=== PATIENT | female | born 1970 | race Caucasian/White ===

== ENCOUNTER → 2017-01-17 | Day surgery (SDC) | payer OTHER ==
[~2017-01-17] MED LIST: ACETAMINOPHEN 1000 MG/100 ML 100 ML IV ONE; ACETAMINOPHEN/HYDROcodone 325 MG/5 MG TAB ONE; GLYCOPYRROLATE 0.2 MG/ML VIAL IM ONE; IBUP800T23 PO; IOHEXOL 180 MG/ML 20 ML VIAL (for RAD DIAG) OTHER ONE; KETOROLAC TROMETHAMINE 30 MG/ML (IVP) VIAL IV PUSH ONE; LACTATED RINGER'S 1000 ML INJ 1,000 ML ONE; MIDAZOLAM HCL 2 MG/2 ML VIAL ONE; MORPHINE SULFATE 4 MG/ML INJ ONE; NEOSTIGMINE METHYLSULFATE 10 MG/10 ML VIAL IV PUSH ONE; OCEL3TAB; ONDANSETRON HCL 4 MG/2 ML VIAL IV PUSH ONE; PERC5TAB12 PO; PROPOFOL 200 MG/20 ML AMP IV ONE; ROBA500T PO; ROCURONIUM INJ 50 MG/5 ML VIAL ONE; SODIUM CHLOR 0.9% 250 ML BAG IV ONE; VANCOMYCIN HCL 1000 MG VIAL ONE; ZOLO20CO PO; ceFAZolin INJ 1,000 MG VIAL ONE
--- NOTE | 2017-01-17 16:04 | RADRPT ---
EXAM DATE/TIME: 01/17/2017 14:36 [place] COMPARISON: No previous studies available for comparison. INDICATIONS : Gall bladder obstruction. FLUORO TIME: 1.2 minutes IMAGE COUNT: 1 MEDICAL HISTORY : None. SURGICAL HISTORY : None. ENCOUNTER: Initial ACUITY: 1 day PAIN SCORE: Non-responsive. LOCATION: Right upper abdomen. PROCEDURE: CHOLANGIOGRAM, OPERATIVE 1. Intraoperative cholangiogram. In the operating room, the cystic duct stump was injected and radiographs obtained. The examination consists of a single image with opacification of most of the common bile duct. There is slight blurring suggesting motion artifact. No definite filling defect is seen in the common bile duct. Intrahepatic bile ducts visualized are not dilated. Cholecystectomy clips are present. There is no filling of the cystic duct. Contrast is present within the second portion of the duodenum, presum ably from passage through the common bile duct and into the duodenum. CONCLUSION: A single image was submitted for review and on this image no filling defect is identified. Ben Burrell MD on January 17, 2017 at 16:00 Board Certified Radiologist. This report was verified electronically.
--- NOTE | 2017-01-17 18:25 | MP ---
cc: JOSUE IGLESIAS M.D., LOUIS M. MD GIERBOLINI, JOSE DATE OF SURGERY: 01/17/2017 PROCEDURE: Laparoscopic cholecystectomy with intraoperative cholangiogram with intraoperative use of fluoroscopy. PREOPERATIVE DIAGNOSIS: Symptomatic cholelithiasis with dilated common bile duct. POSTOPERATIVE DIAGNOSIS: Symptomatic cholelithiasis with dilated common bile duct. ANESTHESIA: General endotracheal anesthesia SURGEON: Mena Iglesias MD. CANCER PROGRAM DIRECTOR: NIKKI Shen ESTIMATED BLOOD LOSS: Less than 30 mL FLUIDS: 850 mL Crystalloid COMPLICATIONS: None. DRAINS: None. SPECIMEN: Gallbladder and stones to pathology. FINDINGS No evidence of common bile duct stones. PROCEDURE IN DETAIL The patient was taken to the operating room and placed on the operating table in the supine position. After an adequate level of general endotracheal anesthesia was achieved the abdomen was prepped and draped in usual fashion. The BOX WORKER's presence was necessary for the entire procedure and she was present throughout the entirety of the procedure. Her presence was necessary for retraction, exposure and resection of important structures. After time out was taken confirming the correct patient, site, and procedure to be performed, skin and subcutaneous tissue was infiltrated with local anesthetic in the umbilicus. Incision was carried down through the umbilicus and the peritoneal cavity directly visualized. A balloon trocar was inserted and the balloon inflated. The abdomen was insufflated. The patient was placed in reverse Trendelenburg position. Three 5 mm trocars were placed with the first to the right of the falciform ligament and second and third in the right subcostal region. All entered the abdominal cavity under direct vision uneventfully. The gallbladder was noted to be without acute inflammatory process. The gallbladder was retracted up and over the dome of liver. The cystic duct infundibular junction was circumferentially dissected as was cystic artery. The cystic artery was doubly clipped proximally, singly clipped on the gallbladder side and divided. The cystic duct was singly clipped proximally and a cystic ductotomy was made. An Fraire cholangiocatheter was brought in via separate stab incision and placed into the cystic duct and secured with a clip. A cholangiogram was obtained with full strength contrast under real time fluoroscopy. This demonstrated good flow of contrast through the common bile duct with immediate flow into the duodenum and no evidence of obstruction or filling defects. There was some back flow noted into the common hepatic duct as well as into the left and right hepatic main ducts. When this was completed, the cholangiocatheter was removed. The cystic duct was doubly clipped distally and then divided. The gallbladder was dissected off of the liver bed with electro dissection. The gallbladder was kept intact and was placed into an EndoCatch device and removed via the umbilical port while observing via the upper 5 mm trocar site. The upper abdomen was revisualized after removing the gallbladder and the liver bed, cystic artery stump, cystic duct stump were all seen to be clean and dry. Insufflation was discontinued and a small amount of bleeding at the cholangiocatheter site was noted and this was controlled with electrocautery. During desufflation no further bleeding was noted after removal of all of the trocars. The laparoscope and umbilical port were then removed. The fascia was closed in the umbilicus with 0 Vicryl suture, in both simple interrupted and [id number] fashion. The remaining local anesthetic was injected into each of the sites. The skin was closed at each site with 4-0 Vicryl in an interrupted buried fashion. The skin was closed with Steri-Strips. The patient was extubated and taken back to the recovery room in stable condition. She tolerated procedure well. MD MICHELLE Robert/MARIAM /3:10 PM /5:59 PM MTDJackson
== END | disposition home or self-care (01) ==
LOC: ESDC 10:20
PROVIDERS: ATTEND Surgery Trauma Surgery
DX: K81.1 Chronic cholecystitis (principal)
CPT/HCPCS: 00790; 47563; 74300; 88304; J0131; J0690; J1885; J2250; J2270; J2405; J2710; J3010; J3370; J7050; J7120; Q9965